=== PATIENT | female | born 1990 | race African-American/Black ===

== ENCOUNTER 2016-12-09 22:01 | Emergency (ER) | payer MEDICAID ==
[~2016-12-09] VITALS: Ht 170.2 cm; Wt 60.0 kg
[2016-12-09] MEDS ORDERED: ETON68IM3 SD (22:09)
[2016-12-09] MEDS ORDERED: SULFACETAMIDE SODIUM 10% 15 ML OPHTHALMIC SOLUTION OU ONE (22:30)
[2016-12-09] MEDS ORDERED: DiphenhydrAMINE HCL 25 MG CAPSULE PO ONE (22:30)
[2016-12-09 22:34] VITALS: BP 117/69
== END 2016-12-09 22:51 | disposition home or self-care (01) ==
LOC: EMS 22:02
DX: H10.89 Other conjunctivitis (principal); H10.13 Acute atopic conjunctivitis, bilateral; F17.210 Nicotine dependence, cigarettes, uncomplicated; F12.90 Cannabis use, unspecified, uncomplicated
CPT/HCPCS: 99283

== ENCOUNTER 2016-12-21 11:50 | Emergency (ER) | payer MEDICAID ==
[~2016-12-21] VITALS: Ht 170.2 cm; Wt 59.5 kg
[~2016-12-21 11:50] MED LIST: ETON68IM3 SD
[2016-12-21] MEDS ORDERED: EYEDROP OS (11:54)
[2016-12-21] MEDS ORDERED: PROPARACAINE HCL 0.5% 15 ML OPHTHALMIC SOLUTION OS ONE (12:15)
[2016-12-21] MEDS ORDERED: FLUORESCEIN SODIUM 1 MG STRIP ONE (12:18)
[2016-12-21 12:50] VITALS: BP 131/50
== END 2016-12-21 12:54 | disposition home or self-care (01) ==
LOC: EMS 11:52
DX: L25.9 Unspecified contact dermatitis, unspecified cause (principal); R03.0 Elevated blood-pressure reading, without diagnosis of hypertension; F12.90 Cannabis use, unspecified, uncomplicated; F17.210 Nicotine dependence, cigarettes, uncomplicated
CPT/HCPCS: 99282

== ENCOUNTER 2017-03-04 14:53 | Emergency (ER) | payer MEDICAID ==
[~2017-03-04] VITALS: Ht 170.2 cm; Wt 60.0 kg
[~2017-03-04 14:53] MED LIST changes: +EYEDROP OS
[2017-03-04 15:38] VITALS: BP 119/81
== END 2017-03-04 16:21 | disposition home or self-care (01) ==
LOC: EMS 14:55
DX: B35.4 Tinea corporis (principal); L29.9 Pruritus, unspecified; F17.210 Nicotine dependence, cigarettes, uncomplicated; F12.90 Cannabis use, unspecified, uncomplicated
CPT/HCPCS: 99283

== ENCOUNTER 2017-04-20 13:23 | Emergency (ER) | payer MEDICAID ==
[~2017-04-20] VITALS: Ht 170.2 cm; Wt 59.1 kg
[2017-04-20 16:15] VITALS: BP 118/75
== END 2017-04-20 16:35 | disposition home or self-care (01) ==
LOC: EMS 13:24
DX: N89.8 Other specified noninflammatory disorders of vagina (principal); R03.0 Elevated blood-pressure reading, without diagnosis of hypertension; F12.90 Cannabis use, unspecified, uncomplicated; F17.210 Nicotine dependence, cigarettes, uncomplicated
CPT/HCPCS: 87210; 87491; 87591; 99284